=== PATIENT | male | born 1970 | race Caucasian/White ===

== ENCOUNTER 2025-05-03 23:33 | Emergency (ER) | payer OTHER, SELFPAY ==
[2025-05-03 23:35] VITALS: BP 123/75; PULSE 100; RESP 16; TEMP 36.9; O2SAT 95; BMI 29.5
--- NOTE | 2025-05-03 23:51 | EX.ED.DYSGE1 ---
HPI History of Present Illness Chief Complaint: Nausea/Vomiting Informant: patient and spouse/S.O. Narrative Narrative: Patient is a 55-year-old male with past medical history of melanoma currently on oral chemo medication. He states that he started the chemotherapy medication roughly 2 weeks ago. He states when he takes the medication his stomach feels upset but he does not have bouts of vomiting associated with it. However this evening he began with subjective chills and then multiple bouts of vomiting. He states that no one else around him has been sick. He denies any history of abdominal procedures/surgeries. He states has been no associated diarrhea. He reports that after receiving Zofran per EMS he has felt much better. However with concern for his medication causing his symptoms versus infection he was brought in for evaluation [facility] Medical History Melanoma Home Medications ?Medication ?Instructions ?Recorded ?Last Taken ?Type dabrafenib 75 mg capsule (Tafinlar) 150 mg PO BID 05/03/25 Unknown History trametinib 2 mg tablet (Mekinist) 2 mg PO DAILY 05/03/25 Unknown History ondansetron 4 mg disintegrating 4 mg PO TID PRN nausea and 05/04/25 Unknown Rx tablet vomiting #21 tabs Allergy/AdvReac Type Severity Reaction Status Date / Time No Known Allergies Allergy Verified 05/03/25 23:43 Social History Smoking Status: Never smoker [facility] ED Constitutional Constitutional ED: Reports chills and subjective; Denies fever(s) ENT ENT ED: Reports rhinorrhea; Denies sore throat Cardiovascular Cardiovascular: Denies chest pain Respiratory/Chest Respiratory/Chest: Denies cough or dyspnea Gastrointestinal Gastrointestinal: Reports nausea and vomiting; Denies abdominal pain or diarrhea Genitourinary Genitourinary ED: Denies dysuria Musculoskeletal Musculoskeletal: Reports myalgias Integumentary Denies rash Neurologic Neurologic: Denies headache(s) Hematologic/Lymphatic Hematologic/Lymphatic: Denies easy bleeding or easy bruising EXAM Physical Exam Const Vital Signs: 05/03/25 23:35 Temperature 98.4 F Temperature Source Oral Pulse Rate 100 Respiratory Rate 16 Blood Pressure 123/75 H Blood Pressure Mean 91 Pulse Ox 95 Oxygen Delivery Method Room Air Positive well nourished and well developed General Appearance ED: well developed; Negative for pallor HEENT HEENT Narrative: Normocephalic atraumatic No tongue or lip swelling no oral lesions no airway edema or compromise There is mild cobblestoning posterior pharynx consistent with sinus drainage; no secondary findings to suggest infection Mucous membranes are dry and tacky Eyes PERRL and EOMs intact bilaterally General Eye ED: Negative for scleral icterus Neck supple Neck Narrative: No nuchal rigidity or meningeal signs Resp normal respiratory effort and clear to auscultation bilaterally Cardio regular rate and regular rhythm Rate: other Other Details: Heart is regular rate and rhythm without murmurs rubs or gallop Radial and carotid pulses are equal and symmetric GI non-tender, non-distended and no masses GI Narrative: Abdomen is soft nontender and nondistended with hyperactive bowel sounds No voluntary guarding or rigidity or pulsatile mass No organomegaly noted No peritoneal signs Auscultation: hyperactive bowel sounds Palpation: soft Extremity normal to inspection Neuro oriented x3, CN's II-XII intact bilaterally and no sensory deficits noted Sensorium / Orientation: alert Motor Exam: strength 5/5 throughout Psych mental status grossly normal Skin no rashes or lesions noted and No skin turgor normal Skin Narrative: Skin turgor is slightly increased General Skin Exam: Negative for jaundice or pallor MDM MDM MDM Narrative Medical decision making narrative: Patient arrived to the ER with stable vitals and reported feeling much better after squat began with fluid resuscitation and Zofran. His history and exam is consistent with a viral stomach infection such as norovirus or rotavirus. However as he is on immunosuppressive oral chemotherapy I did elect to check for viral infection such as COVID influenza or RSV. There is concern he may have developed acute kidney injury or be neutropenic or have electrolyte abnormality. There is also concern for pancreatitis or gallbladder dysfunction such as biliary colic. Secondary to this basic labs were obtained. Labs revealed no clinically significant finding. Patient is not neutropenic he does not have ROHAN or clinically significant electrolyte abnormality. Lipase is normal going against pancreatitis. He received 2 L of IV fluid in the ER and on reevaluation his vitals are stable his abdomen is soft and nonsurgical and has had no further bouts of vomiting. Therefore this time I do not feel there is need for CT scan as symptoms have resolved and vitals are stable laboratory workup is negative and on reevaluation his abdomen remains soft and nonsurgical. Therefore he will be placed on Zofran to help control any further bouts of vomiting going forward but is otherwise safe for discharge History & Record Review Discussion w/independent historian: Patient and Significant other Lab Data Attestation: I reviewed the patient's lab results. Labs: Laboratory Results - last 24 hr 05/03/25 23:55 WBC 7.0 RBC 4.16 L Hgb 12.4 L Hct 35.9 L MCV 86.3 MCH 29.8 MCHC 34.5 RDW Std Deviation 36.4 RDW Coeff of Mitchel 11.6 Plt Count 183 MPV 9.3 Immature Gran % (Auto) 0.600 Neut % (Auto) 86.0 H Lymph % (Auto) 6.6 L [place] % (Auto) 6.2 Eos % (Auto) 0.0 Baso % (Auto) 0.6 Absolute Neuts (auto) 6.0 Absolute Lymphs (auto) 0.46 L Nucleated RBC % 0 Sodium 133 Potassium 3.3 Chloride 99 Carbon Dioxide 20.7 L Anion Gap 13 BUN 15 Creatinine 0.99 Estim Creat Clear Calc 85.19 Est GFR (MDRD) Non-Af 90 BUN/Creatinine Ratio 15.6 Glucose 142 H Calcium 8.2 Magnesium 1.4 L Total Bilirubin 0.47 Direct Bilirubin 0.22 AST 38 ALT 49 H Alkaline Phosphatase 118 Total Protein 6.0 Albumin 3.7 Globulin 2.4 Lipase 21 Discharge Plan Triage Chief Complaint: Nausea/Vomiting ED Provider: Harshil Hi Dx/Rx/DC Orders Clinical Impression: Nausea and vomiting, Dehydration, Melanoma Instructions: ED Dehydration (Adult), ED Gastroenteritis, Viral (Adult) Prescriptions: New ondansetron 4 mg tablet,disintegrating 4 mg PO TID PRN (Reason: nausea and vomiting) Qty: 21 0RF No Action Mekinist 2 mg tablet 2 mg PO DAILY Rx Instructions: must be taken on empty stomach, at least 1 hr before or 2-3 hrs after meal/food Tafinlar 75 mg capsule 150 mg PO BID Rx Instructions: administer approximately 12 hours apart Primary Care Provider: Jay King Referrals: Jay King, [Primary Care Provider, Internal Medicine] Activity Restrictions/Additional Instructions: Your workup today revealed no clinically significant findings. Your history exam and workup indicate you have a viral stomach infection. This will last anywhere from 1 to 10 days with the average being 3 days. Take the prescribed medication as directed to help prevent further bouts of nausea and vomiting and keep yourself well-hydrated. Return to the ER should you have any further concerns Print Language: Azerbaijani Disposition Disposition: Home, Self Care
[2025-05-04 00:18] LABS: Hematocrit 35.9 % (40-54); Hemoglobin 12.4 g/dL (13.0-16.5); Immature Granulocytes Count 0.040 X10^3/uL (0.0-0.0); Mean Corp Hgb Conc 34.5 g/dL (32-36); Mean Corpuscular Volume 86.3 fL (80-94); Mean Platelet Vol. 9.3 fl (6.2-12.0); NRBC Flagged by Analyzer 0 % (0-5); POSITIVE DIFFERENTIAL YES; Platelet Count 183 K/mm3 (150-450); RBC Distribution Width CV 11.6 % (11.6-14.6); RBC Distribution Width SD 36.4 fl (35.1-43.9); Red Blood Count 4.16 M/mm3 (4.6-6.2); White Blood Count 7.0 K/mm3 (4.4-11.0)
[2025-05-04 00:24] LABS: AST(SGOT) 38 U/L (<=37); Alanine Aminotransfer ALT/SGPT 49 U/L (<=46); Albumin, Serum 3.7 g/dL (3.5-5.0); Alkaline Phosphatase 118 U/L (40-129); Anion Gap 13 (5-15); BUN 15 mg/dL (4-19); BUN/Creat Ratio 15.6 RATIO (10-20); Bilirubin, Direct 0.22 mg/dL (0.00-0.30); Calcium,Total 8.2 mg/dL (7.6-11.0); Carbon Dioxide 20.7 mmol/L (21.0-32.0); Chloride 99 mmol/L (98-108); Estimated Creatinine Clearance 85.19 ml/min (50-250); Globulin 2.4 g/dL (2.2-4.2); Glucose 142 mg/dL (70-99); Lipase 21 U/L (13-75); Magnesium 1.4 mg/dL (1.5-2.2); Potassium 3.3 mmol/L (3.3-5.1)
[2025-05-04] MEDS: 0.9% Normal Saline (1000mL) 1,000 ML 999 ML IV (00:36)
[2025-05-04 01:58] VITALS: BP 117/97; PULSE 96; RESP 18; O2SAT 97
[2025-05-04 02:05] VITALS: BP 117/97; PULSE 96; RESP 18; TEMP 36.7; O2SAT 97
== END 2025-05-04 02:12 | disposition home or self-care (01) ==
PROVIDERS: Emergency Provider Emergency Medicine; PCP Family Medicine; Visit Provider Emergency Medicine
DX: R11.2 Nausea with vomiting, unspecified (principal); C43.9 Malignant melanoma of skin, unspecified; E86.0 Dehydration; Z92.21 Personal history of antineoplastic chemotherapy
CPT/HCPCS: 80048; 80076; 83690; 83735; 85025; 87631; 96360; 96361; 99285; A4216